=== PATIENT | female | born 1990 | race Caucasian/White ===

== ENCOUNTER 2016-06-05 12:20 | Emergency (ER) | payer OTHER ==
[~2016-06-05 12:20] MED LIST: CORRECTOL100 MG PO; IBUPROFEN200 M1 PO
--- NOTE | 2016-06-05 14:11 | DIAGNOSTIC IMAGING REPORT ---
PROCEDURE: XR CHEST 2 VIEW INDICATION: CHEST PAIN TECHNIQUE: PA and lateral views. COMPARISON: None. FINDINGS: Lungs are clear. Heart and mediastinum are normal. Thorax is normal. IMPRESSION: 1. Negative chest.
--- NOTE | 2016-06-05 14:40 | ED CLINICAL REPORT ---
Clinical Report - Physicians/Mid Levels [facility] [address] [place] [address] 06/05/2016 12:20 Patient: KELLY LOPEZ Time Seen: 13:06; initial patient contact, initial documentation, patient care assumed. Arrived- By private vehicle. Historian- patient. HISTORY OF PRESENT ILLNESS Chief Complaint: DYSPNEA. This started just prior to arrival and is now gone. The dyspnea is described as moderate and is worsened by cough. The patient has had a cough and anxiety. No sputum production, fever, wheezing, dyspnea on exertion or chest pain. No orthopnea, paroxysmal nocturnal dyspnea, dizziness, tingling or numbness. No palpitations. The patient has had chest discomfort (describes it as spasms and someone pushing on her ribs). 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 Similar symptoms previously: Frequently, milder. Recent medical care: Not recently seen/assessed. REVIEW OF SYSTEMS No muscle aches, sore throat, nasal discharge, sinus drainage or abdominal pain. All systems otherwise negative, except as recorded above. PAST HISTORY See nurses notes. PROBLEMS: Diarrhea. Biliary Colic. Tetanus Status. Abdominal Pain. Threatened . Care. OB History. . . Vertigo. UTI - Urinary Tract Infection. Immunizations. LNMP - Last Normal Menstrual Period. Heart Murmur. --12:34 Reyna Huynh R.N. Gastroesophageal Reflux Disease. --12:35 Ryena Huynh R.N. ADDITIONAL SURGERIES: Cholecystectomy. --12:34 Reyna Huynh R.N. SOCIAL HISTORY Never smoker. Occasional alcohol use. No drug use. No recent travel. Is a local resident. FAMILY HISTORY Negative. ADDITIONAL NOTES The nursing notes have been reviewed with agreement regarding the chief complaint, HPI, ROS, PMH and patient medications and allergies. PHYSICAL EXAM Vital Signs: 06/05/2016 12:30 BP: 134/85. HR: 55. RR: 18. O2 saturation: 96%. Temp: 98.1 F. Pain level now: 10. Have been reviewed as abnormal and appear to be correct. Blood pressure normal. Bradycardic. Respiratory rate normal. Temperature normal. Oxygen saturation normal. Appearance: Alert. No acute distress. Eyes: Pupils equal, round and reactive to light. Eyes normal inspection. Neck: Normal inspection. No jugular venous distention. Neck supple. CVS: Normal heart rate and rhythm. Heart sounds normal. Pulses normal. Respiratory: No respiratory distress. Breath sounds normal. Back: Normal inspection. Skin: Skin warm and dry. Normal skin color. No rash. Normal skin turgor. Extremities: Extremities exhibit normal ROM. No lower extremity edema. Neuro: Oriented X 3. No motor deficit. No sensory deficit. LABS, X-RAYS, AND EKG EKG: EKG time: (1347). No acute process. No acute ischemia. Normal EKG. Rate: 68. Normal EKG. The study has been interpreted contemporaneously by me (and dr hill). The EKG appears to be a good tracing. Interpretation time: 1350. Chest X-ray: Normal Chest X-Ray. (IMPRESSION: 1. Negative chest. Electronically Final signed by:Edwin Zavaleta MD 06/05/2016 2:11:11 PM). The X-rays were interpreted by the radiologist and contemporaneously by me. Interpretation time: 14:31. Laboratory Tests: Serum Qualitative: (JAMES: 06/05/2016 13:35) ( MsgRcvd 06/05/2016 14:08) Final results Test Result Flag Units (Reference) , SERUM NEGATIVE CBC w Diff: (JAMES: 06/05/2016 13:35) ( MsgRcvd 06/05/2016 14:03) Final results Test Result Flag Units (Reference) WHITE BLOOD COUNT 6.9 K/uL (4.5-11.5) RED BLOOD COUNT 4.98 M/uL (4.00-5.20) HEMOGLOBIN 14.5 gm/dL (12.0-16.0) HEMATOCRIT 43.2 % (36.0-46.0) MEAN CELL VOLUME 87 fL (80-100) MEAN CORPUSCULAR HGB 29 pg (26-34) MEAN CORPUSCULAR HGB CONC 34 g/dL (31-37) RED CELL DISTRIBUTION WIDTH 12.8 % (11.6-14.8) PLATELET COUNT 295 K/uL (150-400) NEUTROPHIL % 51.9 % (50-75) LYMPH % 36.2 % (25-40) MONO % 9.2 % (3-14) EOSINOPHIL % 2.5 % (0-4) BASOPHIL % 0.2 % (0-2) [id number]: (JAMES: 06/05/2016 13:35) ( MsgRcvd 06/05/2016 14:22) Final results Test Result Flag Units (Reference) D-DIMER QUANTITATIVE < 0.27 L ug/mLFEU (0.27-0.52) The primary value of this quantitative assay relates toits negative predictive value (i.e. exclusion) of pulmonaryembolism/deep vein thrombosis/DIC.Elevated levels of d-dimer may also occur with:, age, cancer, inflammation, liver disease,post-op, infection, hematoma, coronary disease, peripheralarteriopathy, bleeding disorders and thrombolytic treatment.Results should be correlated with other clinical andradiological data.Testing Methodology: Latex Immunoassay BMP: (JAMES: 06/05/2016 13:35) ( RigRcvd 06/05/2016 14:14) Final results Test Result Flag Units (Reference) GLUCOSE 92 mg/dL (70-110) BUN 7 mg/dL (7-18) CREATININE 0.6 mg/dL (0.6-1.3) Estimated GFR >60 mL/min Estimated GFR- >60 mL/min Note: Persistent reduction over 3 months in eGFR<60 mL/min/1.73 m2 defines CKD. Patients with eGFR values>=60 mL/min/1.73 m2 may also have CKD if evidence ofpersistent proteinuria. Additional information may be foundat [email or web address]. SODIUM 139 mmol/L (136-145) POTASSIUM 4.0 mmol/L (3.5-5.1) CHLORIDE 102 mmol/L (98-107) CARBON DIOXIDE 26 mmol/L (21-32) CALCIUM 9.2 mg/dL (8.5-10.1) . PROGRESS AND PROCEDURES Patient counseled in person regarding the patient's stable condition, test results and diagnosis. 14:32. Differential Diagnosis: Other possible considerations: pe, asthma, bronchospasms, anxiety, muscle spasm, pneumonia, costalchondritis, pleurisy, mi, angina. Above considerations are based on history, physical exam, laboratory data, X-Ray data and EKG. Differential diagnosis was discussed with patient. Disposition: Discharged home in good and improved condition (14:40). Condition: good and stable. CLINICAL IMPRESSION Chest wall pain .12 lead EKG performed. INSTRUCTIONS Do not work today. Warnings: GENERAL WARNINGS: Return or contact your physician immediately if your condition worsens or changes unexpectedly, if not improving as expected, or if other problems arise. SPECIFICALLY, return if you develop chest pain, neck pain, jaw pain, shoulder pain, arm pain, back pain, fever, productive cough, difficulty breathing, excessive fatigue, a fluttering sensation in the chest, fainting or leg swelling. Prescription Medications: Naprosyn 500 mg tablets: take 1 orally every 12 hours as needed for pain. Dispense twenty (20). No refills. Substitution is permissible. Follow-up: Follow up with your doctor in about two days even if well. Call for an appointment. Summary of care provided to patient. Understanding of the discharge instructions verbalized by patient. (Electronically signed by Kellie Whyte A.R.N.P. 06/05/2016 18:48)
--- NOTE | 2016-06-05 14:40 | ED ORDER SUMMARY ---
..... Patient: KELLY LOPEZ OrderSheet [facility] VisitID: [id number] [address] [place] [address] 25y, F Registration Date/Time: 06/05/2016 ORDER SHEET Weight: 81.6 kg (stated) Allergies: No Known Drug Allergy GENERAL ORDERS: Chest 2V Urgent (13:20 06/05/2016 HBivens A.R.N.P.) (Ack 13:44 RKaruga) (14:42 Layton R.N.) CBC w Diff Urgent (13:21 06/05/2016 HBivens A.R.N.P.) (Ack 13:44 RKaruga) (13:49 Layton R.N.) BMP Urgent (13:06/05/2016 HBivens A.R.N.P.) (Ack 13:44 RKaruga) (13:49 Layton R.N.) Serum Qualitative Urgent (13:21 06/05/2016 HBivens A.R.N.P.) (Ack 13:44 RKaruga) (13:49 Layton R.N.) D-Dimer Urgent (13:21 06/05/2016 HBivens A.R.N.P.) (Ack 13:44 RKaruga) (13:49 Layton R.N.) EKG - ER Stat (13:21 06/05/2016 HBivens A.R.N.P.) (Ack 13:44 RKaruga) (13:49 Layton R.N.) MEDICATION ORDERS: IV FLUIDS: IV Saline Lock (13:21 06/05/2016 HBivens A.R.N.P.) (13:23 Layton R.N.) ORDER SHEET NOTES: [Electronically signed by Reyna Huynh R.N. (17:59 06/05/2016)] [Electronically signed by Kellie WhyteR.N.P. (18:48 06/05/2016)] [Electronically locked/signed by Reyna Huynh R.N. (17:59 06/05/2016)]
--- NOTE | 2016-06-05 14:40 | ED ORDER SUMMARY ---
..... Patient: KELLY LOPEZ OrderSheet [facility] VisitID: [id number] [address] [place] [address] 25y, F Registration Date/Time: 06/05/2016 ORDER SHEET Weight: 81.6 kg (stated) Allergies: No Known Drug Allergy GENERAL ORDERS: Chest 2V Urgent (13:20 06/05/2016 HBivens A.R.N.P.) (Ack 13:44 RKaruga) (14:42 Layton R.N.) CBC w Diff Urgent (13:21 06/05/2016 HBivens A.R.N.P.) (Ack 13:44 RKaruga) (13:49 Layton R.N.) BMP Urgent (13:06/05/2016 HBivens A.R.N.P.) (Ack 13:44 RKaruga) (13:49 Layton R.N.) Serum Qualitative Urgent (13:21 06/05/2016 HBivens A.R.N.P.) (Ack 13:44 RKaruga) (13:49 Layton R.N.) D-Dimer Urgent (13:21 06/05/2016 HBivens A.R.N.P.) (Ack 13:44 RKaruga) (13:49 Layton R.N.) EKG - ER Stat (13:21 06/05/2016 HBivens A.R.N.P.) (Ack 13:44 RKaruga) (13:49 Layton R.N.) MEDICATION ORDERS: IV FLUIDS: IV Saline Lock (13:21 06/05/2016 HBivens A.R.N.P.) (13:23 Layton R.N.) ORDER SHEET NOTES: [Electronically signed by Reyna Huynh R.N. (17:59 06/05/2016)] [Electronically signed by Kellie WhyteR.N.P. (18:48 06/05/2016)] [Electronically locked/signed by Reyna Huynh R.N. (17:59 06/05/2016)]
--- NOTE | 2016-06-05 14:40 | ED NURSING NOTES ---
Clinical Report - Nurses [facility] [address] [place] [address] 06/05/2016 12:20 Patient: KELLY LOPEZ TRIAGE Triage time 12:31. Acuity: LEVEL 3. Chief Complaint: DIFFICULTY BREATHING. Alert. No acute distress. REBEKAH COMA SCORE: Rebekah Coma Scale: 15- eyes open spontaneously (4); best verbal response- oriented x 4 (5); best motor response- obeys commands (6). --12:37 Reyna Huynh R.N. 12:30 06/05/16. BP: 134/85. HR: 55. RR: 18. O2 saturation: 96% on room air. Temp: 98.1 F (oral). Pain level now: 3/10. --12:37 Reyna Huynh R.N. Weight: 81.6 kg stated. Height/Length: 62 inches Per Patient. BMI: 32.9. --12:35 Reyna Huynh R.N. Medications None. --12:33 Reyna Huynh R.N. Iud. --12:38 Reyna Huynh R.N. Allergies No Known Drug Allergy. --12:33 Reyna Huynh R.N. History Arrived by private vehicle. Historian: patient. Unaccompanied. Primary physician (Jona). This started today. Onset. (about 1000). ( occ "spasms" in ribs, feels like "someone is pushing up on her ribs"). She has had chest discomfort and a cough. No vomiting. Pain level upon arrival: 3/10 and at maximum: 6/10. PAST MEDICAL HX: Last normal menstrual period- Apr 2016. SOCIAL HX: Smoker- current status unknown (no). Occasional alcohol use. No drug use. FALL RISK ASSESSMENT: Fall risk assessment completed. No fall risk identified. FUNCTIONAL ASSESSMENT: Functional assessment: no impairments noted. LEARNING NEEDS ASSESSMENT: The learning needs assessment revealed no barriers. --12:37 Lino, Reyna, R.N. PROBLEMS: Diarrhea. Biliary Colic. Tetanus Status. Abdominal Pain. Threatened . Care. OB History. . . Vertigo. UTI - Urinary Tract Infection. Immunizations. LNMP - Last Normal Menstrual Period. Heart Murmur. --12:34 Reyna Huynh R.N. Gastroesophageal Reflux Disease. --12:35 Reyna Huynh R.N. ADDITIONAL SURGERIES: Cholecystectomy. --12:34 Reyna Huynh R.N. Assessment GENERAL / NEURO / PSYCH: Alert. Oriented X 4. Appears in no acute distress. Patient appears calm and cooperative. RESPIRATORY: Respirations not labored. SKIN: Skin is warm and dry. --12:37 Reyna Huynh R.N. Interventions ID band on patient. To treatment room. --12:37 Reyna Huynh R.N. PHYSICAL ASSESSMENT 12:52 06/05/16. Ambulatory to room. Patient gowned. GENERAL / NEURO / PSYCH: Alert. Oriented X 4. Appears in no acute distress. RESPIRATORY: No respiratory distress. Respirations not labored. CVS: Cardiac rhythm: sinus rhythm. SKIN: Skin is warm and dry. --12:52 Reyna Huynh R.N. NURSING PROGRESS NOTES 12:53 06/05/16. Cardiac rhythm: sinus rhythm. school lunch monitor, pulse oximeter and NIBP monitor placed on patient. Patient gowned. Head of bed elevated. Call light placed in reach. Side rails up x 1. Bed placed in lowest position. Brakes of bed on. --12:53 Reyna Huynh R.N. up and amb to BR and back without assistance. --13:21 Reyna Huynh R.N. 13:22 06/05/2016 Site #1 started via IV in the left hand with an 20g angiocath, with aseptic technique and good blood return; one attempt. Saline lock flushed with 10 mL saline (unable to draw blood with start, lab called). --13:22 Reyna Huynh R.N. EKG time: (13:47 PM). EKG was performed by a tech and shown to the ED physician. --13:57 Eulogio Yeh 14:50. The patient is calm. Overall patient status is improved- she states feels the same. RESPIRATORY: No respiratory distress. SKIN: Skin is warm and dry. --17:57 Reyna Huynh R.N. DISPOSITION / DISCHARGE 14:50 06/05/2016 Site #1 removed upon discharge. Catheter intact. Bandaid applied. --17:56 Reyna Huynh R.N. Departure time: 1450. Condition at departure: improved. No learning barriers present. Discharge instructions provided and reviewed with the patient. Reviewed medication(s). Prescription(s) given to the patient. Patient verbalized understanding. Written instructions provided in Armenian. The patient was discharged home and unaccompanied at time of discharge. She left the Emergency Department ambulatory and via private vehicle. FALL RISK ASSESSMENT: Fall risk assessment completed. No fall risk identified. --17:58 Reyna Huynh R.N. 14:50 06/05/16. BP: 122/64. HR: 68. RR: 15. O2 saturation: 98%. Pain level now: 05/01. --17:58 Reyna Huynh R.N. Locked/Released at 06/05/2016 17:59 by Reyna Huynh R.N.
--- NOTE | 2016-06-05 18:48 | ED MED RECONCILIATION SUMMARY ---
Patient: KELLY LOPEZ Medication Reconciliation Report [facility] VisitID: [id number] [address] [place] [address] 25y, F Registration Date/Time: 06/05/2016 Weight: 81.6 kg Height/Length: 62 in. BMI: 32.9 ALLERGIES: No Known Drug Allergy The patient's Home Medications are listed below: THE FOLLOWING MEDICATIONS NEED TO BE RECONCILED: Iud The source(s) of the original Home Medication information: Not obtained. The following Medications were given to the patient in the Emergency Department: None. The following Medications were prescribed to the patient: Naprosyn 500 mg tablets: take 1 orally every 12 hours as needed for pain. Dispense twenty (20). No refills. Substitution is permissible. -- Kellie Whyte A.R.N.P.
--- NOTE | 2016-06-05 18:48 | ED MED RECONCILIATION SUMMARY ---
Patient: KELLY LOPEZ Medication Reconciliation Report [facility] VisitID: [id number] [address] [place] [address] 25y, F Registration Date/Time: 06/05/2016 Weight: 81.6 kg Height/Length: 62 in. BMI: 32.9 ALLERGIES: No Known Drug Allergy The patient's Home Medications are listed below: THE FOLLOWING MEDICATIONS NEED TO BE RECONCILED: Iud The source(s) of the original Home Medication information: Not obtained. The following Medications were given to the patient in the Emergency Department: None. The following Medications were prescribed to the patient: Naprosyn 500 mg tablets: take 1 orally every 12 hours as needed for pain. Dispense twenty (20). No refills. Substitution is permissible. -- Kellie Whyte A.R.N.P.
--- NOTE | 2016-06-05 18:48 | ED MAR SUMMARY ---
..... Medication Administration Record [facility] [address] [place], [place] [id number] Patient: KELLY LOPEZ Visit ID: [id number] 25y, F Weight: 81.6 kg Height/Length: 62 in BMI: 32.9 ALLERGIES: No Known Drug Allergy
--- NOTE | 2016-06-05 18:48 | ED DISCHARGE INSTRUCTIONS ---
Patient: KELLY LOPEZ General Instructions [facility] VisitID: [id number] [place] [address] 25y, F Registration Date/Time: 06/05/2016 Chest wall pain .12 lead EKG performed. INSTRUCTIONS Do not work today. Warnings: GENERAL WARNINGS: Return or contact your physician immediately if your condition worsens or changes unexpectedly, if not improving as expected, or if other problems arise. SPECIFICALLY, return if you develop chest pain, neck pain, jaw pain, shoulder pain, arm pain, back pain, fever, productive cough, difficulty breathing, excessive fatigue, a fluttering sensation in the chest, fainting or leg swelling. Prescription Medications: Naprosyn 500 mg tablets: take 1 orally every 12 hours as needed for pain. Dispense twenty (20). No refills. Substitution is permissible. Follow-up: Follow up with your doctor in about two days even if well. Call for an appointment. Summary of care provided to patient. Understanding of the discharge instructions verbalized by patient. ADDITIONAL INFORMATION Chest Wall Pain: Costochondritis The chest pain that you have had today is caused by Costochondritis. This condition is due to an inflammation of the cartilage joining the ribs to the breastbone. It is not caused by heart or lung problems. Although the exact cause for costochondritis is not known, it often occurs during times of emotional stress. It can be painful, but it is not dangerous. It usually disappears within one to two weeks, but may recur. Rarely, a more serious condition may cause symptoms similar to costochondritis; therefore, watch for the warning signs listed below. Home Care: If you feel that emotional stress is a cause of your condition, try to identify sources of that stress. It may not be obvious! Learn ways to deal with the stress in your life such as regular exercise, muscle relaxation, meditation, or simply taking time out for yourself. For more information about this, consult your doctor or go to a local bookstore and review books and tapes available on the subject of stress reduction. You may use acetaminophen (Tylenol) or ibuprofen (Motrin, Advil) to control pain, unless another pain medicine was prescribed. [ NOTE: If you have liver disease or ever had a stomach ulcer, talk with your doctor before using these medicines.] The use of heat (hot wet compress or heating pad) with or without local analgesic creams (Deep Heat Rub, Horacio Swartz) will be helpful to reduce pain. Follow Up with your doctor as directed or sooner if you do not start to improve within the next two days. Get Prompt Medical Attention if any of the following occur: A change in the type of pain: if it feels different, becomes more severe, lasts longer, or spreads into your shoulder, arm, neck, jaw or back Shortness of breath or increased pain with breathing Weakness, dizziness, or fainting Cough with dark colored sputum (phlegm) or blood Abdominal pain Dark red or black stools Fever of 100.4F (38C) or higher, or as directed by your healthcare provider Naproxen Sodium Oral tablet What is this medicine? NAPROXEN (na PROX en) is a non-steroidal anti-inflammatory drug (NSAID). It is used to reduce swelling and to treat pain. This medicine may be used for dental pain, headache, or painful monthly periods. It is also used for painful joint and muscular problems such as arthritis, tendinitis, bursitis, and gout. How should I use this medicine? Take this medicine by mouth with a glass of water. Follow the directions on the prescription label. Take it with food if your stomach gets upset. Try to not lie down for at least 10 minutes after you take it. Take your medicine at regular intervals. Do not take your medicine more often than directed. Long-term, continuous use may increase the risk of heart attack or stroke. A special MedGuide will be given to you by the pharmacist with each prescription and refill. Be sure to read this information carefully each time. Talk to your zig zag stitcher regarding the use of this medicine in children. Special care may be needed. What side effects may I notice from receiving this medicine? Side effects that you should report to your doctor or health companion caregiver as soon as possible: black or bloody stools, blood in the urine or vomit blurred vision chest pain difficulty breathing or wheezing nausea or vomiting severe stomach pain skin rash, skin redness, blistering or peeling skin, hives, or itching slurred speech or weakness on one side of the body swelling of eyelids, throat, lips unexplained weight gain or swelling unusually weak or tired yellowing of eyes or skin Side effects that usually do not require medical attention (report to your doctor or health companion caregiver if they continue or are bothersome): constipation headache heartburn What may interact with this medicine? alcohol aspirin cidofovir diuretics lithium methotrexate other drugs for inflammation like ketorolac or prednisone pemetrexed probenecid warfarin What if I miss a dose? If you miss a dose, take it as soon as you can. If it is almost time for your next dose, take only that dose. Do not take double or extra doses. Where should I keep my medicine? Keep out of the reach of children. Store at room temperature between 15 and 30 degrees C (59 and 86 degrees F). Keep container tightly closed. Throw away any unused medicine after the expiration date. What should I tell my health care provider before I take this medicine? They need to know if you have any of these conditions: asthma cigarette smoker drink more than 3 alcohol containing drinks a day heart disease or circulation problems such as heart failure or leg edema (fluid retention) high blood pressure kidney disease liver disease stomach bleeding or ulcers an unusual or allergic reaction to naproxen, aspirin, other NSAIDs, other medicines, foods, dyes, or preservatives or trying to get breast-feeding What should I watch for while using this medicine? Tell your doctor or health companion caregiver if your pain does not get better. Talk to your doctor before taking another medicine for pain. Do not treat yourself. This medicine does not prevent heart attack or stroke. In fact, this medicine may increase the chance of a heart attack or stroke. The chance may increase with longer use of this medicine and in people who have heart disease. If you take aspirin to prevent heart attack or stroke, talk with your doctor or health companion caregiver. Do not take other medicines that contain aspirin, ibuprofen, or naproxen with this medicine. Side effects such as stomach upset, nausea, or ulcers may be more likely to occur. Many medicines available without a prescription should not be taken with this medicine. This medicine can cause ulcers and bleeding in the stomach and intestines at any time during treatment. Do not smoke cigarettes or drink alcohol. These increase irritation to your stomach and can make it more susceptible to damage from this medicine. Ulcers and bleeding can happen without warning symptoms and can cause . You may get drowsy or dizzy. Do not drive, use machinery, or do anything that needs mental alertness until you know how this medicine affects you. Do not stand or sit up quickly, especially if you are an older patient. This reduces the risk of dizzy or fainting spells. This medicine can cause you to bleed more easily. Try to avoid damage to your teeth and gums when you brush or floss your teeth. You have been given the following additional information: Chest Wall Pain, Costochondritis Naproxen Sodium Oral tablet Do not work today. (Electronically signed by Kellie Whyte A.R.N.P. 06/05/2016 18:48)
--- NOTE | 2016-06-05 18:48 | ED MAR SUMMARY ---
..... Medication Administration Record [facility] [address] [place], [place] [id number] Patient: KELLY LOPEZ Visit ID: [id number] 25y, F Weight: 81.6 kg Height/Length: 62 in BMI: 32.9 ALLERGIES: No Known Drug Allergy
--- NOTE | 2016-06-05 18:48 | ED DISCHARGE INSTRUCTIONS ---
Patient: KELLY LOPEZ General Instructions [facility] VisitID: [id number] [place] [address] 25y, F Registration Date/Time: 06/05/2016 Chest wall pain .12 lead EKG performed. INSTRUCTIONS Do not work today. Warnings: GENERAL WARNINGS: Return or contact your physician immediately if your condition worsens or changes unexpectedly, if not improving as expected, or if other problems arise. SPECIFICALLY, return if you develop chest pain, neck pain, jaw pain, shoulder pain, arm pain, back pain, fever, productive cough, difficulty breathing, excessive fatigue, a fluttering sensation in the chest, fainting or leg swelling. Prescription Medications: Naprosyn 500 mg tablets: take 1 orally every 12 hours as needed for pain. Dispense twenty (20). No refills. Substitution is permissible. Follow-up: Follow up with your doctor in about two days even if well. Call for an appointment. Summary of care provided to patient. Understanding of the discharge instructions verbalized by patient. ADDITIONAL INFORMATION Chest Wall Pain: Costochondritis The chest pain that you have had today is caused by Costochondritis. This condition is due to an inflammation of the cartilage joining the ribs to the breastbone. It is not caused by heart or lung problems. Although the exact cause for costochondritis is not known, it often occurs during times of emotional stress. It can be painful, but it is not dangerous. It usually disappears within one to two weeks, but may recur. Rarely, a more serious condition may cause symptoms similar to costochondritis; therefore, watch for the warning signs listed below. Home Care: If you feel that emotional stress is a cause of your condition, try to identify sources of that stress. It may not be obvious! Learn ways to deal with the stress in your life such as regular exercise, muscle relaxation, meditation, or simply taking time out for yourself. For more information about this, consult your doctor or go to a local bookstore and review books and tapes available on the subject of stress reduction. You may use acetaminophen (Tylenol) or ibuprofen (Motrin, Advil) to control pain, unless another pain medicine was prescribed. [ NOTE: If you have liver disease or ever had a stomach ulcer, talk with your doctor before using these medicines.] The use of heat (hot wet compress or heating pad) with or without local analgesic creams (Deep Heat Rub, Horacio Swartz) will be helpful to reduce pain. Follow Up with your doctor as directed or sooner if you do not start to improve within the next two days. Get Prompt Medical Attention if any of the following occur: A change in the type of pain: if it feels different, becomes more severe, lasts longer, or spreads into your shoulder, arm, neck, jaw or back Shortness of breath or increased pain with breathing Weakness, dizziness, or fainting Cough with dark colored sputum (phlegm) or blood Abdominal pain Dark red or black stools Fever of 100.4F (38C) or higher, or as directed by your healthcare provider Naproxen Sodium Oral tablet What is this medicine? NAPROXEN (na PROX en) is a non-steroidal anti-inflammatory drug (NSAID). It is used to reduce swelling and to treat pain. This medicine may be used for dental pain, headache, or painful monthly periods. It is also used for painful joint and muscular problems such as arthritis, tendinitis, bursitis, and gout. How should I use this medicine? Take this medicine by mouth with a glass of water. Follow the directions on the prescription label. Take it with food if your stomach gets upset. Try to not lie down for at least 10 minutes after you take it. Take your medicine at regular intervals. Do not take your medicine more often than directed. Long-term, continuous use may increase the risk of heart attack or stroke. A special MedGuide will be given to you by the pharmacist with each prescription and refill. Be sure to read this information carefully each time. Talk to your coal equipment operator regarding the use of this medicine in children. Special care may be needed. What side effects may I notice from receiving this medicine? Side effects that you should report to your doctor or health out of school hours care worker as soon as possible: black or bloody stools, blood in the urine or vomit blurred vision chest pain difficulty breathing or wheezing nausea or vomiting severe stomach pain skin rash, skin redness, blistering or peeling skin, hives, or itching slurred speech or weakness on one side of the body swelling of eyelids, throat, lips unexplained weight gain or swelling unusually weak or tired yellowing of eyes or skin Side effects that usually do not require medical attention (report to your doctor or health out of school hours care worker if they continue or are bothersome): constipation headache heartburn What may interact with this medicine? alcohol aspirin cidofovir diuretics lithium methotrexate other drugs for inflammation like ketorolac or prednisone pemetrexed probenecid warfarin What if I miss a dose? If you miss a dose, take it as soon as you can. If it is almost time for your next dose, take only that dose. Do not take double or extra doses. Where should I keep my medicine? Keep out of the reach of children. Store at room temperature between 15 and 30 degrees C (59 and 86 degrees F). Keep container tightly closed. Throw away any unused medicine after the expiration date. What should I tell my health care provider before I take this medicine? They need to know if you have any of these conditions: asthma cigarette smoker drink more than 3 alcohol containing drinks a day heart disease or circulation problems such as heart failure or leg edema (fluid retention) high blood pressure kidney disease liver disease stomach bleeding or ulcers an unusual or allergic reaction to naproxen, aspirin, other NSAIDs, other medicines, foods, dyes, or preservatives or trying to get breast-feeding What should I watch for while using this medicine? Tell your doctor or health out of school hours care worker if your pain does not get better. Talk to your doctor before taking another medicine for pain. Do not treat yourself. This medicine does not prevent heart attack or stroke. In fact, this medicine may increase the chance of a heart attack or stroke. The chance may increase with longer use of this medicine and in people who have heart disease. If you take aspirin to prevent heart attack or stroke, talk with your doctor or health out of school hours care worker. Do not take other medicines that contain aspirin, ibuprofen, or naproxen with this medicine. Side effects such as stomach upset, nausea, or ulcers may be more likely to occur. Many medicines available without a prescription should not be taken with this medicine. This medicine can cause ulcers and bleeding in the stomach and intestines at any time during treatment. Do not smoke cigarettes or drink alcohol. These increase irritation to your stomach and can make it more susceptible to damage from this medicine. Ulcers and bleeding can happen without warning symptoms and can cause . You may get drowsy or dizzy. Do not drive, use machinery, or do anything that needs mental alertness until you know how this medicine affects you. Do not stand or sit up quickly, especially if you are an older patient. This reduces the risk of dizzy or fainting spells. This medicine can cause you to bleed more easily. Try to avoid damage to your teeth and gums when you brush or floss your teeth. You have been given the following additional information: Chest Wall Pain, Costochondritis Naproxen Sodium Oral tablet Do not work today. (Electronically signed by Kellie Whyte A.R.N.P. 06/05/2016 18:48)
== END 2016-06-05 14:50 | disposition home or self-care (01) ==
LOC: ED SRH 12:20
DX: R07.89 Other chest pain (principal)
CPT/HCPCS: 90047; 91556; 95059; 98428